=== PATIENT | male | born 1960 | race Two or more races ===

== ENCOUNTER 2018-09-21 18:07 | Emergency (ER) | payer OTHER ==
[~2018-09-21] VITALS: Ht 182.9 cm; Wt 105.2 kg
[~2018-09-21 18:07] MED LIST: ASMANEX110 MC1; ATORVASTATIN CA10 MG; AXIRON30 MG/1.5; BYSTOLIC5 MG; CLONAZEPAM0.125 MG; COZAAR50 MG; ESCITALOPRA5 MG/5 ML; NASA MIST SALIN75 ML; NEXIUM40 M1; PEPCID20 MG
[2018-09-21] MEDS ORDERED: AMLODIPINE BESYL5 MG (18:22)
== END 2018-09-21 23:47 | disposition home or self-care (01) ==
LOC: ER 18:07
DX: J45.998 Other asthma (principal)